=== PATIENT | female | born 1990 | race Caucasian/White ===

== ENCOUNTER 2018-05-23 20:53 | Emergency (ER) | payer OTHER ==
[2018-05-23] MEDS: ONDANSETRON (ODT) 4 MG TAB ODT (21:28)
[2018-05-23] MEDS: DIAZEPAM 5 MG TAB PO (21:28)
[2018-05-23] MEDS: HYDROCODONE/APAP (10/325) TAB PO (21:29)
== END 2018-05-23 22:35 | disposition home or self-care (01) ==
LOC: E/R 20:53
DX: M54.42 Lumbago with sciatica, left side (principal)
CPT/HCPCS: 81025; 99283